=== PATIENT | male | born 1995 | race Caucasian/White ===

== ENCOUNTER 2019-10-17 15:42 | Emergency (ER) | payer OTHER ==
--- OUTSIDE RECORDS SUMMARY | 2019-10-17 15:51 | XMS REPORT ---
:1995 Author Organization [facility] Care Team Providers Name Role Phone CASSIDY BOONE Primary Care Physician Unavailable Allergies, Adverse Reactions, Alerts Allergy Code CodeSystem Reaction Severity Criticality Status Start Substance Date Moderate Medications Medication Medication Medication Start Stop Route Dose Status Fill Code CodeSystem Date Date Instructions Invega 162435 RxNorm IM 117 active for 30 Sustenna 1-22 mg/0.75 day(s) mL syringe Invega 103291 RxNorm IM 117 completed Inject 1 syringe Sustenna 4-02 07-01 mg/0.75 intramuscularly mL 1 once a month syringe for 30 day(s) once a month Relevant diagnostic tests/laboratory data Narrative No Information Procedures Procedure Code CodeSystem Target Date of Status Service Device Device Device Name Site Procedure Delivery Code Name UID Location Psychotherap 616605 SNOMED-CT () 2018-11-17 complete Mental y, 45 04 d Health- minutes with [facility] patient [address], [id number] Comprehensiv 923688 SNOMED-CT () 2018-11-17 complete Mental e medication 0 d Health- services, [place] per [address], [id number] [id number] Comprehensiv 589433 SNOMED-CT () 2018-12-15 complete Mental e medication 0 d Health- services, [facility] per [address], [id number] [id number] Office [place] [id number] SNOMED-CT () 2018-11-29 complete Mental other 7 d Health- outpatient [facility] visit for [address], of an [facility] established [id number] patient, [phone] which requires at least 2 of these 3 corona components: An expanded problem focused history; An expanded problem focused examination; Medical decision making of low Office or 183264 SNOMED-CT () 2019 complete Mental other 7 d Health- outpatient [facility] visit for [address], established [id number] patient, [phone] which requires at least 2 of these 3 corona components: An expanded problem focused history; An expanded problem focused examination; Medical decision making of [facility] Office [place] [id number] SNOMED-CT () 2019-08-22 complete Mental other 6 d Health- outpatient [facility] visit for [address], established [id number] patient, [phone] which requires at least 2 of these 3 corona components: A problem focused history; A problem focused examination; [place] medical decision making. Counselin Office or [id number] SNOMED-CT () 2019-06-13 complete Mental other 6 d Health- outpatient [facility] visit for [address], established [id number] patient, [phone] which requires at least 2 of these 3 corona components: A problem focused history; A problem focused examination; [place] medical decision making. Counselin Office or [id number] SNOMED-CT () 2019-01-17 complete Mental other 6 d Health- outpatient [place] visit for [address], established [id number] patient, [phone] which requires at least 2 of these 3 croona components: A problem focused history; A problem focused examination; Straight[place]w shea medical decision making. Sandi SNOMED-CT () 2019-01-17 complete Mental d Health- [address], [id number] SNOMED-CT () 2019-02-01 complete Mental d Health- [address], [id number] SNOMED-CT () 2019-04-28 complete Mental d Health- [address], [id number] SNOMED-CT () 2018-12-12 complete Mental d Health- [address], [id number] SNOMED-CT () 2019-07-25 complete Mental d [address], [id number] [id number] SNOMED-CT () 2019-09-05 complete Mental d [address], [id number] [phone] SNOMED-CT () 2019-07-04 complete Mental d [address], [id number] Encounters/Encounter Diagnoses Encounter Name Encounter Diagnosis Diagnosis Diagnosis Date of Service Code Code Name CodeSystem Diagnosis Delivery Location Psychotherapy - 52032 SNOMED-CT 2019-09-05 Behavioral Individual [facility] [address] [place] [address], [phone] Vital Signs No Information Social History Element Description Description Start End Code CodeSystem AdditionalInfo Date Date SexAssignedAtBirth Male 1994- M AdministrativeGender 0-01 Hospital Discharge Instructions Reason For Referral Medical Equipment FDA Assessments
--- OUTSIDE RECORDS SUMMARY | 2019-10-17 15:51 | XMS REPORT ---
:1995 Author Organization [facility] Care Team Providers Name Role Phone CASSIDY BOONE Primary Care Physician Unavailable Allergies, Adverse Reactions, Alerts Allergy Code CodeSystem Reaction Severity Criticality Status Start Substance Date Moderate Medications Medication Medication Medication Start Stop Route Dose Status Fill Code CodeSystem Date Date Instructions Invega 358223 RxNorm IM 117 active for 30 Sustenna 1-22 mg/0.75 day(s) mL syringe Invega 814489 RxNorm IM 117 completed Inject 1 syringe Sustenna 4-02 07-01 mg/0.75 intramuscularly mL 1 once a month syringe for 30 day(s) once a month Relevant diagnostic tests/laboratory data Narrative No Information Procedures Procedure Code CodeSystem Target Date of Status Service Device Device Device Name Site Procedure Delivery Code Name UID Location Comprehensiv 826416 SNOMED-CT () 2018-11-17 complete Mental e medication 0 d Health- services, [place] [address] [place] [address] [place] [address], [id number] [id number] Comprehensiv 017539 SNOMED-CT () 2018-12-15 complete Mental e medication 0 d Health- services, [place] per [place] [address] [place], [place], [id number] [phone] SNOMED-CT () 2019-01-17 complete Mental d [address], [id number] [phone] SNOMED-CT () 2019-02-01 complete Mental d [address], [id number] SNOMED-CT () 2019-04-28 complete Mental d [address], [id number] [id number] SNOMED-CT () 2018-12-12 complete Mental d [address], [id number] [id number] SNOMED-CT () 2019-07-25 complete Mental d Health- [facility] [address], [id number] [phone] Psychotherap 704341 SNOMED-CT () 2018-11-17 complete Mental y, 45 04 d Health- minutes with [facility] patient [address], [id number] [phone] Office or [id number] SNOMED-CT () 2018-11-29 complete Mental other 7 d Health- outpatient [place] visit for [address], established [id number] patient, [phone] which requires at least 2 of these 3 corona components: An expanded problem focused history; An expanded problem focused examination; Medical decision making of [facility] Office or 430541 SNOMED-CT () 2019 complete Mental other 7 d Health- outpatient [facility] visit for [address], established [id number] patient, [phone] which requires at least 2 of these 3 corona components: An expanded problem focused history; An expanded problem focused examination; Medical decision making of low SNOMED-CT () 2019-07-04 complete Mental d Health- [facility] [address], [id number] [phone] Office or 004791 SNOMED-CT () 2019-08-22 complete Mental other 6 d Health- outpatient [facility] visit for [address], established [id number] patient, [phone] which requires at least 2 of these 3 corona components: A problem focused history; A problem focused examination; Straightforw shea medical decision making. Counselin Office or 919914 SNOMED-CT () 2019-06-13 complete Mental other 6 d Health- outpatient [facility] visit for [address], established [id number] patient, [phone] which requires at least 2 of these 3 corona components: A problem focused history; A problem focused examination; Straight[place]w shea medical decision making. Counselin Office or 274598 SNOMED-CT () 2019-01-17 complete Mental other 6 d Health- outpatient [facility] visit for [facility] the [address] [facility], management [place], of an [facility] [id number] patient, [phone] which requires at least 2 of these 3 corona components: A problem focused history; A problem focused examination; Straightforw shea medical decision making. Counselin Encounters/Encounter Diagnoses Encounter Name Encounter Diagnosis Diagnosis Diagnosis Date of Service Code Code Name CodeSystem Diagnosis Delivery Location [facility] [address] SNOMED-CT 2019-08-22 [facility] Established [facility] patient [address] [place], [place], [id number] Vital Signs No Information Social History Element Description Description Start End Code CodeSystem AdditionalInfo Date Date SexAssignedAtBirth Male 1994- M AdministrativeGender 0- Hospital Discharge Instructions Reason For Referral Medical Equipment FDA Assessments
[2019-10-17 16:47] VITALS: BP 132/57
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
[2019-10-18 12:32] LABS: Hepatitis B Surface Antigen Nonreactive (Nonreactive)
[2019-10-18 12:44] LABS: HIV 4th Generation Nonreactive (Nonreactive)
[2019-10-18 12:49] LABS: Hepatitis B Surface Ab Not Immune (Immune); Hepatitis C Antibody Negative (Negative)
== END 2019-10-17 17:24 | disposition home or self-care (01) ==
LOC: UCCORT 15:42
DX: Z11.4 Encounter for screening for human immunodeficiency virus [HIV] (principal); Z11.59 Encounter for screening for other viral diseases; Z88.8 Allergy status to other drugs, medicaments and biological substances
CPT/HCPCS: 36415; 86706; 86803; 87340; 87389; 99211; G0463